=== PATIENT | female | born 1980 | race Two or more races ===

== ENCOUNTER 2024-09-10 04:10 | Day surgery (SDC) | payer OTHER ==
[2024-09-06 17:37] VITALS: BMI 30.6
[2024-09-10] MEDS ORDERED: SUCCINYLCHOLINE CHLORIDE 200 MG/10 ML SYRINGE ONE (07:25)
[2024-09-10] MEDS ORDERED: PROPOFOL 20 ML ONE ×2 (07:25→08:27)
[2024-09-10] MEDS ORDERED: ALBUTEROL SO4 HFA INHALER IH ONE (07:25)
[2024-09-10] MEDS ORDERED: MIDAZOLAM HCL 2 MG/2 ML SINGLE DOSE VIAL ONE (07:25)
[2024-09-10] MEDS ORDERED: LIDOCAINE HCL/PF 2% SDV 5ML VIAL ONE (07:26)
[2024-09-10] MEDS ORDERED: ACETAMINOPHEN 325 MG TABLET (FP) PO PRN (07:59)
[2024-09-10] MEDS ORDERED: oxyCODONE HCL 5 MG TABLET PO PRN (07:59)
[2024-09-10] MEDS ORDERED: ONDANSETRON 4 MG/2 ML VIAL IVPUSH PRN (07:59)
[2024-09-10] MEDS ORDERED: LACTATED RINGERS SOLUTION 1,000 ML IV SCH ×2 (08:00→10:15)
[2024-09-10] MEDS ORDERED: ePHEDrine SULFATE 50 MG/1 ML AMPULE ONE (08:23)
[2024-09-10] MEDS ORDERED: DEXMEDETOMIDINE HCL 200 MCG/2 ML IVPB ONE (08:25)
[2024-09-10] MEDS ORDERED: ACETAMINOPHEN INJECTION 100 ML ONE (08:25)
[2024-09-10] MEDS ORDERED: HYDROmorphone HCl 2 MG/ML VIAL ONE (08:43)
[2024-09-10 16:06] VITALS: BP 116/70; PULSE 79; RESP 16; TEMP 97
== END 2024-09-10 13:55 | disposition home or self-care (01) ==
LOC: JASU-SURG 04:10
PROVIDERS: ATTEND Otolaryngology
PROC: 0GBG0ZX Excision of Left Thyroid Gland Lobe, Open Approach, Diagnostic (ICD-10-PCS; principal; 2024-09-10 08:00)
DX: E04.1 Nontoxic single thyroid nodule (principal)
CPT/HCPCS: 88307-TC; 94760; J0131